=== PATIENT | male | born 1995 | race Two or more races ===

== ENCOUNTER 2016-11-12 19:08 | Emergency (ER) | payer OTHER ==
[~2016-11-12] VITALS: Ht 190.5 cm; Wt 63.6 kg
[2016-11-12 19:23] VITALS: BP 131/80; PULSE 85; RESP 16; O2SAT 100
== END 2016-11-12 22:56 | disposition left against medical advice (07) ==
LOC: SED 19:08
DX: R11.10 Vomiting, unspecified (principal)